=== PATIENT | female | born 2000 | race Caucasian/White ===

== ENCOUNTER 2022-11-12 02:00 | Emergency (ER) | payer MEDICAID ==
[~2022-11-12] VITALS: Ht 162.6 cm; Wt 50.0 kg
[2022-11-12] MEDS ORDERED: METOCLOPRAMIDE HCL 10MG TABLET PO ONE (07:00)
[2022-11-12] MEDS ORDERED: KETOROLAC 60MG/2ML VIAL IM ONE (07:00)
[2022-11-12 08:00] VITALS: BP 126/78
== END 2022-11-12 10:29 | disposition left against medical advice (07) ==
LOC: ER 02:00
DX: G43.909 Migraine, unspecified, not intractable, without status migrainosus (principal); G40.909 Epilepsy, unspecified, not intractable, without status epilepticus
CPT/HCPCS: 81025; 96372; 99283; J1885; J8597

== ENCOUNTER 2023-07-18 12:42 | Emergency (ER) | payer BC, MEDICAID ==
[~2023-07-18] VITALS: Ht 162.6 cm; Wt 55.0 kg
[2023-07-18 12:47] VITALS: O2SAT 100
[2023-07-18] MEDS ORDERED: ONDANSETRON 4MG ODT PO ONE (13:15)
[2023-07-18 15:05] VITALS: BP 96/58; PULSE 63; RESP 19; TEMP 98.3
[2023-07-18] MEDS ORDERED: LEVETIRACETAM 500MG TABLET PO SCH (21:00)
== END 2023-07-18 15:14 | disposition home or self-care (01) ==
LOC: ER 12:42
DX: G40.901 Epilepsy, unspecified, not intractable, with status epilepticus (principal)
CPT/HCPCS: 99283; Q0162